=== PATIENT | male | born 1990 | race African-American/Black ===

== ENCOUNTER → 2020-12-06 08:52 | Outpatient (REF) | payer MEDICAID, SELFPAY ==
--- NOTE | ~2020-12-06 | NM_ITS ---
EXAMINATION: RADIONUCLIDE SOLID FOOD GASTRIC EMPTYING 4-HOUR STUDY CLINICAL INFORMATION: Epigastric pain, GERD, abdominal bloating. COMPARISON: None. TECHNIQUE: A standard meal consisting of 4 oz of Egg Beaters brand tagged with 760 microcuries Tc-99m Sulfur Colloid, 8 oz water and 2 slices of toast with jelly was administered orally to the patient. Images were obtained using a dual head gamma camera in the anterior and posterior projections over of the stomach immediately post ingestion and at hourly intervals up to 3 hours post ingestion. Images were not obtained at 4 hours due to the minimal retention at 3 hours. The anterior and posterior counts at each time interval were averaged using the geometric mean and expressed as percentage of the immediate post ingestion counts. FINDINGS: There is good visualization of activity in the stomach immediately post ingestion. As the study progresses, there is good clearance of activity from the stomach and visualization of progressively increasing small bowel activity. By the end of the study, there is almost no retention noted in the stomach. Retention in the stomach at each time interval was: 1 hour 36% (normal 37%-90%) 2 hours 4% (normal 30%-60%) 3 hours 5% 4 hours (Not Obtained) (normal 0%-10%) NM/NM gastric emptying study IMPRESSION: Normal solid food gastric emptying study.
== END ==
LOC: HO.NUCMED 08:52
PROVIDERS: PCP Internal Medicine; Visit Provider Internal Medicine
DX: R10.13 Epigastric pain (principal); R14.0 Abdominal distension (gaseous); K21.9 Gastro-esophageal reflux disease without esophagitis
CPT/HCPCS: 78264; A9541

== ENCOUNTER 2020-12-09 08:35 | Outpatient (REF) | payer MEDICAID, SELFPAY ==
--- NOTE | ~2020-12-09 | US_ITS ---
EXAMINATION: US ABDOMEN COMPLETE CLINICAL INFORMATION: Epigastric pain. COMPARISON: None TECHNIQUE: Real-time imaging of the abdominal viscera. FINDINGS: PANCREAS: Normal. ABDOMINAL AORTA: The proximal, mid, and distal segments are normal in caliber. INFERIOR VENA CAVA: Visualized portions are normal. LIVER: Normal. The liver is normal in size. The liver contour is normal. Parenchymal echogenicity is normal. No focal hepatic lesion. There is no intrahepatic biliary duct dilatation seen. GALLBLADDER: Normal. The gallbladder is physiologically distended without evidence of stones, sludge, polyps, wall thickening or pericholecystic fluid. COMMON BILE DUCT: Normal in caliber measuring 0.3 cm in diameter. RIGHT KIDNEY: There is a small 3 mm echogenic density in the lower pole with twinkle artifact questionable for a stone. No hydronephrosis or mass. The kidney measures 9.9 cm in maximum dimension. LEFT KIDNEY: There is a slightly hyperechoic 2 cm area in the mid left kidney questionable for a dromedary hump versus mass. No hydronephrosis. No renal calculi. The kidney measures 10.2 cm in maximum dimension. SPLEEN: Normal. The spleen measures 9.4 cm in maximum dimension. FREE FLUID: None. US/US abdomen complete IMPRESSION: Question small right renal stone. 2 cm slightly echogenic area in the mid left kidney questionable for a dromedary versus mass. Follow-up CT or MR kidneys with and without contrast recommended.
== END 2020-12-09 08:36 | disposition home or self-care (01) ==
LOC: HO.US 08:35
PROVIDERS: Visit Provider Internal Medicine
DX: R10.13 Epigastric pain (principal)
CPT/HCPCS: 76700

== ENCOUNTER 2021-01-27 13:42 | Emergency (ER) | payer MEDICAID, SELFPAY ==
--- NOTE | ~2021-01-27 | CT_ITS ---
EXAMINATION: CT ABDOMEN AND PELVIS WITHOUT CONTRAST CLINICAL INFORMATION: Abdominal pain. Rule out colitis. COMPARISON: Previous abdominal ultrasound November 2020 TECHNIQUE: Multidetector volumetric imaging was performed from the superior aspect of the liver through the pubic symphysis. Sagittal and coronal reformatted images were obtained on the technologist's workstation. This CT examination was performed using dose optimization techniques as appropriate, variously including the following: *Automated exposure control *Adjustment of mA and/or kV according to patient size (this includes techniques or standardized protocols for targeted exams where dose is matched to indication/reason for exam; i.e. extremities or head) *Use of iterative reconstruction technique DLP: 722 mGy-cm FINDINGS: LUNG BASES: The visualized lung bases are unremarkable. LIVER, GALLBLADDER, AND BILIARY TREE: The liver is normal in size, shape, and attenuation. No focal hepatic lesion or biliary ductal dilatation is present. The gallbladder is unremarkable with no evidence of radiopaque gallstones, gallbladder wall thickening, or obvious pericholecystic inflammatory changes. PANCREAS: Unremarkable. SPLEEN: Unremarkable. ADRENAL GLANDS: Unremarkable. KIDNEYS AND URETERS: The kidneys are normal in size, shape, and attenuation. No hydronephrosis, hydroureter, or calculi seen. No perinephric stranding. BLADDER: Unremarkable. GASTROINTESTINAL TRACT: There is question of mild wall thickening of the left colon. There is also question of mild wall thickening of the rectum. Small and large bowel is otherwise unremarkable. ABDOMINAL WALL: No significant hernia is appreciated. LYMPH NODES: There are small perirectal lymph nodes. There are small bilateral inguinal lymph nodes. VASCULAR: Unremarkable. PELVIC VISCERA: Unremarkable. OSSEOUS STRUCTURES: Unremarkable. CT/CT abdomen pelvis wo con IMPRESSION: Question mild colitis of the left colon and proctitis.
[2021-01-27 14:08] VITALS: BP 119/64; PULSE 69; RESP 16; TEMP 36.7; O2SAT 97; BMI 27.8
--- NOTE | 2021-01-27 15:02 | ED_ITS ---
HPI - General Adult General Chief complaint: General Medical Stated complaint: bloody bowl movements/lightheaded/nausea/bloating Time Seen by Provider: 01/27/21 15:00 Source: patient and family ( Significant other) Mode of arrival: ambulatory Limitations: no limitations History of Present Illness HPI narrative: 30-year-old male came in for abdominal cramps, bloody bowel movements, nausea for 3 days after eating bad food, girlfriend 9 from the same food and had similar symptoms but she feels better now. Patient describes the abdominal pain as intermittent, mild 2/10, localized to the mid abdomen with no radiation, worsening with food, nothing make it better, associated with bright red blood per rectum, patient declined diarrhea, solid formed stool. Related Data Allergies Allergy/AdvReac Type Severity Reaction Status Date / Time Iodinated Contrast Media Allergy Unknown Verified 01/27/21 14:08 [Contrast Dye] Penicillins Allergy Hives Verified 01/27/21 14:08 Review of Systems Review of Systems: All other systems are reviewed and are negative Constitutional: Reports as per HPI and Reports no additional constitutional complaints Eyes: Reports as per HPI and Reports no additional eye complaints Reports system reviewed and no additional complaints, except as documented Cardiovascular: Reports as per HPI and Reports no additional cardiovascular complaints Respiratory: Reports as per HPI and Reports no additional respiratory complaints Gastrointestinal: Reports as per HPI and Reports no additional gastrointestinal complaints Genitourinary: Reports no additional female genitourinary complaints Musculoskeletal: Reports no additional musculoskeletal complaints Skin/Breast: Reports system reviewed and no additional complaints, except as docu Psychiatric: Reports no additional psychiatric complaints Endocrine: Reports no additional endocrine complaints Hematologic/Lymphatic: Reports no additional hematologic/lymphatic complaints Allergic/Immunologic: Reports no additional allergic/immunologic complaints Reports system reviewed and no additional complaints, except as documented and Reports Abnormal speech present [facility] Past Medical History Medical History Dysautonomia Aristeo Monteiro infection Lyme disease Social History Social History Alcohol intake: never Patient Tobacco Use Status: Never used Tobacco Use of substances other than those prescribed or required for medical reasons: No Advance Directives: No Advance Directives Information Provided: No Physical Exam Vital Signs: Vital Signs: Last Vital Signs Temp 98.1 F 01/27/21 14:08 Pulse 56 01/27/21 15:14 Resp 17 01/27/21 15:14 BP 96/55 L 01/27/21 15:14 Pulse Ox 98 01/27/21 15:14 Body Mass Index 27.8 vital signs have been reviewed as appeared to be correct. Blood pressure no rmal. Heart rate normal. Respiration rate normal. Temperature normal. Oxygen saturation normal. Appearance: Alert. Oriented X3. No acute distress. Head: Normal external exam. Normocephalic. Atraumatic. No Robins signs noted. No raccoon eyes noted Eyes: PERRLA. EOMI. Conjunctiva and sclera normal. Eyelids normal. ENT: TM's Normal. Pharynx normal. Uvula midline. Moist mucous membranes. No trismus noted. No drooling noted. No muffled voice noted. Neck: Normal inspection. Neck supple. FROM. No adenopathy. Thyroid Normal. No meningeal signs. No neck mass noted. CVS: Normal heart rate and rhythm. Heart sound normal. No murmurs noted. Pulses normal throughout. Respiratory: No respiratory distress. Painless inspiration. Breath sounds normal. No wheezes/rales/rhonchi noted. Chest nontender. No accessory muscle usage noted or decreased air movement noted. Abdomen: Soft and nontender. Bowel sounds normal in all 4 quadrants. No distention noted. No organomegaly noted. No visible injury noted. Rectal exam: Brown stool with bright red blood streaks Back: No CVA tenderness. Full range of motion noted. Skin: Skin warm and dry. Normal skin color. Normal skin turgor. No rashes/lesions/lacerations noted. Extremities: No lower extremity edema. Extremities exhibit normal range of motion. Extremities nontender. Neuro: Oriented X 3. No motor deficit. No sensory deficit. Reflexes normal. Course Course Course Narrative: assessment and plan. 30-year-old male came in with abdominal cramps, rectal bleed after eating bad food, girlfriend ate the same food and also having similar symptoms, patient has unremarkable exam except for streaks of bright red blood in rectum, stable vital signs, stable hemoglobin. Patient was reassured, instructed to start with clear foods in advance gradually as tolerated. Medical Decision Making Lab Data Lab results reviewed: Yes I reviewed the patient's lab results. Result diagrams: 01/27/21 15:08 01/27/21 15:08 Labs: Lab Results 01/27/21 01/27/21 01/27/21 Range/Units 15:08 15:08 15:10 WBC 3.5 L (4.8-10.8) X10*3/uL RBC 4.76 (4.60-5.80) X10*6/uL Hgb 13.1 L (14.0-18.0) g/dl Hct 39.3 L (42-52) % MCV 82.6 (80-98) fL MCH 27.5 (27.0-33.0) pg MCHC 33.3 (31.0-36.0) g/dl RDW 12.7 (11.0-16.0) % Plt Count 215 (160-400) X10*3/uL MPV 11.1 (9.4-12.4) fL Immature Gran % (Auto) 0.0 (0.0-0.4) % Neut % (Auto) 54.7 (45-73) % Lymph % (Auto) 34.1 (20-40) % Billings % (Auto) 8.3 (2-11) % Eos % (Auto) 2.3 (0-4) % Baso % (Auto) 0.6 (0-2) % Lymph # (Auto) 1.2 (1.2-4.9) X10*3/uL Billings # (Auto) 0.3 (0.1-1.2) X10*3/uL Eos # (Auto) 0.1 (0.0-0.4) X10*3/uL Baso # (Auto) 0.0 (0.0-0.2) X10*3/uL Abs Immat Gran (auto) 0.00 (0.00-0.03) X10*3/uL Absolute Neuts (auto) 1.9 L (2.0-8.3) X10*3/uL Absolute Nucleated RBC 0.000 (0.0-0.012) X10*3/uL Nucleated RBC % (auto) 0.0 (0.0-0.2) /100WBC Sodium 139 (135-145) mmol/L Potassium 4.4 (3.3-5.1) mmol/L Chloride 107 (96-108) mmol/L Carbon Dioxide 23 (22-29) mmol/L Anion Gap 13 (12-20) BUN 11 (9-16) mg/dL Creatinine 0.94 (0.5-1.4) mg/dL Estim Creat Clear Calc 133.6 Estimated GFR > 60 Random Glucose 80 (60-115) mg/dL Calcium 9.4 (8.4-10.2) mg/dL Total Bilirubin 0.3 (0.0-1.0) mg/dL Direct Bilirubin < 0.2 (0.0-0.5) mg/dL AST 17 (5-37) U/L ALT 18 (0-40) U/L Alkaline Phosphatase 70 (39-117) U/L Total Protein 7.3 (6.5-8.0) g/dL Albumin 4.1 (3.5-5.0) g/dL Lipase 49 (8-78) U/L Stool Occult Blood POSITIVE (NEGATIVE) Imaging Data CT scan - abdomen: Radiologist's impression: Question mild colitis of the left colon and proctitis. Discharge Plan Discharge Clinical Impression: Colitis Patient Disposition: Home, Self-Care Instructions: Colitis (ED) Additional Instructions: return to the ED if the rectal bleed or the abdominal pain is not resolved in 2 days. Keep clear diet and advanced as tolerated. Referrals: Jen Carter MD [Primary Care Provider] - 2 days
[2021-01-27 15:14] VITALS: BP 96/55; PULSE 56; RESP 17; O2SAT 98
[2021-01-27 15:24] LABS: MANUAL DIFF FLAG NO
[2021-01-27 15:27] LABS: OBS Int Ctl Valid YES; OBS1 POSITIVE (NEGATIVE)
[2021-01-27 15:31] LABS: Basophils Percent Auto 0.6 % (0-2); Eosinophils Absolute Auto 0.1 X10*3/uL (0.0-0.4); Eosinophils Percent Auto 2.3 % (0-4); Hematocrit 39.3 % (42-52); Hemoglobin 13.1 g/dl (14.0-18.0); Lymphocytes Absolute Auto 1.2 X10*3/uL (1.2-4.9); Lymphocytes Percent Auto 34.1 % (20-40); Mean Corpuscular HGB Conc 33.3 g/dl (31.0-36.0); Mean Corpuscular Hemoglobin 27.5 pg (27.0-33.0); Mean Corpuscular Volume 82.6 fL (80-98); Mean Platelet Volume 11.1 fL (9.4-12.4); Monocytes Absolute Auto 0.3 X10*3/uL (0.1-1.2); Monocytes Percent Auto 8.3 % (2-11); Neutrophils Absolute Auto 1.9 X10*3/uL (2.0-8.3); Neutrophils Percent Auto 54.7 % (45-73); Platelet Count 215 X10*3/uL (160-400); Red Blood Count 4.76 X10*6/uL (4.60-5.80); Red Cell Distribution Width 12.7 % (11.0-16.0); White Blood Count 3.5 X10*3/uL (4.8-10.8)
[2021-01-27 15:58] LABS: Alanine Aminotransferase 18 U/L (0-40); Albumin Level 4.1 g/dL (3.5-5.0); Alkaline Phosphatase 70 U/L (39-117); Anion Gap 13 (12-20); Aspartate Amino Transferase 17 U/L (5-37); Bilirubin Direct < 0.2 mg/dL (0.0-0.5); Bilirubin Total 0.3 mg/dL (0.0-1.0); Blood Urea Nitrogen 11 mg/dL (9-16); Calcium 9.4 mg/dL (8.4-10.2); Carbon Dioxide 23 mmol/L (22-29); Chloride 107 mmol/L (96-108); Creatinine Clr Calc Pharmacy 133.6; Estimated Glomerular Filt Rate > 60; Glucose Random 80 mg/dL (60-115); Lipase 49 U/L (8-78); Potassium 4.4 mmol/L (3.3-5.1); Sodium 139 mmol/L (135-145); Total Protein 7.3 g/dL (6.5-8.0)
[2021-01-27 16:49] VITALS: BP 111/65; PULSE 62; RESP 17; O2SAT 100
== END 2021-01-27 16:54 | disposition home or self-care (01) ==
PROVIDERS: Emergency Provider Emergency Medicine; PCP Internal Medicine
DX: K52.9 Noninfective gastroenteritis and colitis, unspecified (principal)
CPT/HCPCS: 36415; 74176; 80048; 80076; 82272; 83690; 85025; 96360; 99284

== ENCOUNTER 2021-03-09 12:01 | Outpatient (REF) | payer MEDICAID, SELFPAY ==
[2021-03-09 15:11] LABS: Leukocytes Stool Qualitative NEGATIVE (NEGATIVE)
[2021-03-09 15:32] LABS: CDiff Gene PCR POSITIVE (Negative)
[2021-03-09 16:08] LABS: CDIFF Internal ctrl Dots and bkg OK (V); CDiff Toxin Negative (Negative)
== END 2021-03-09 12:02 | disposition home or self-care (01) ==
LOC: HO.10HDLNP 12:01
PROVIDERS: Visit Provider Internal Medicine
DX: R19.7 Diarrhea, unspecified (principal); R14.0 Abdominal distension (gaseous); K58.9 Irritable bowel syndrome, unspecified
CPT/HCPCS: 87045; 87046; 87177; 87209; 87324; 87329; 87493; 89055

== ENCOUNTER 2021-05-23 11:44 | Outpatient (REF) | payer MEDICAID, SELFPAY ==
[2021-05-23 12:45] LABS: CDiff Gene PCR POSITIVE (Negative)
[2021-05-23 13:23] LABS: CDIFF Internal ctrl Dots and bkg OK (V); CDiff Toxin Negative (Negative)
[2021-05-23 13:45] LABS: Leukocytes Stool Qualitative NEGATIVE (NEGATIVE)
== END 2021-05-23 11:45 | disposition home or self-care (01) ==
LOC: HO.LNP 11:44
PROVIDERS: Visit Provider Internal Medicine
DX: R19.7 Diarrhea, unspecified (principal)
CPT/HCPCS: 87045; 87046; 87177; 87209; 87324; 87329; 87493; 89055

== ENCOUNTER 2021-07-01 12:48 | Outpatient (REF) | payer MEDICAID, SELFPAY ==
[2021-07-01 13:10] LABS: MANUAL DIFF FLAG NO
[2021-07-01 14:01] LABS: Basophils Percent Auto 0.3 % (0-2); Eosinophils Absolute Auto 0.1 X10*3/uL (0.0-0.4); Eosinophils Percent Auto 1.6 % (0-4); Hematocrit 36.9 % (42.0-52.0); Hemoglobin 12.2 g/dl (14.0-18.0); Imm Gran Abs Auto 0.01 X10*3/uL (0.00-0.03); Imm Gran Pct Auto 0.3 % (0.0-0.4); Lymphocytes Percent Auto 33.1 % (20-40); Mean Corpuscular HGB Conc 33.1 g/dl (31.0-36.0); Mean Corpuscular Hemoglobin 26.5 pg (27.0-33.0); Mean Corpuscular Volume 80.2 fL (80.0-98.0); Mean Platelet Volume 12.1 fL (9.4-12.4); Monocytes Absolute Auto 0.4 X10*3/uL (0.1-1.2); Monocytes Percent Auto 11.5 % (2-11); Neutrophils Absolute Auto 1.6 x10*3/uL (2.0-8.3); Neutrophils Percent Auto 53.2 % (45-73); Platelet Count 258 X10*3/uL (160-400); Red Cell Distribution Width 15.3 % (11.0-16.0); White Blood Count 3.1 X10*3/uL (4.8-10.8)
[2021-07-01 14:20] LABS: Alanine Aminotransferase 30 U/L (0-40); Albumin Level 3.8 g/dL (3.5-5.0); Alkaline Phosphatase 61 U/L (39-117); Anion Gap 8 (12-20); Aspartate Amino Transferase 27 U/L (5-37); Bilirubin Direct 0.2 mg/dL (0.0-0.5); Bilirubin Total 0.4 mg/dL (0.0-1.0); Blood Urea Nitrogen 14 mg/dL (9-16); C Reactive Protein 0.31 mg/dL (< or = 0.50); Calcium 9.6 mg/dL (8.4-10.2); Carbon Dioxide 28 mmol/L (22-29); Chloride 105 mmol/L (96-108); Estimated Glomerular Filt Rate > 60; Glucose Random 96 mg/dL (60-115); Lipase 40 U/L (8-78); Potassium 4.3 mmol/L (3.3-5.1); Sodium 137 mmol/L (135-145); Total Protein 8.5 g/dL (6.5-8.0)
[2021-07-01 14:45] LABS: Amylase 82 U/L (28-100)
[2021-07-01 15:00] LABS: Erythrocyte Sedimentation Rate 29 MM/HR (0-15)
== END 2021-07-01 12:49 | disposition home or self-care (01) ==
LOC: HO.LAB 12:48
PROVIDERS: Visit Provider Internal Medicine
DX: R10.84 Generalized abdominal pain (principal); R19.7 Diarrhea, unspecified; K62.5 Hemorrhage of anus and rectum; R11.0 Nausea
CPT/HCPCS: 36415; 80048; 80076; 82150; 83690; 85025; 85652; 86140

== ENCOUNTER 2021-07-04 10:56 | Outpatient (REF) | payer MEDICAID, SELFPAY ==
[2021-07-04 11:55] LABS: Leukocytes Stool Qualitative NEGATIVE (NEGATIVE)
[2021-07-04 12:39] LABS: CDiff Gene PCR POSITIVE (Negative)
[2021-07-04 14:35] LABS: CDIFF Internal ctrl Dots and bkg OK (V); CDiff Toxin Negative (Negative)
== END 2021-07-04 10:57 | disposition home or self-care (01) ==
LOC: HO.LNP 10:56
PROVIDERS: Visit Provider Internal Medicine
DX: R19.7 Diarrhea, unspecified (principal); K62.5 Hemorrhage of anus and rectum; R10.84 Generalized abdominal pain; R11.0 Nausea
CPT/HCPCS: 87045; 87046; 87177; 87186; 87209; 87324; 87329; 87493; 89055

== ENCOUNTER 2021-09-09 12:21 | Outpatient (REF) | payer MEDICAID, SELFPAY ==
[2021-09-09 14:06] LABS: Leukocytes Stool Qualitative NEGATIVE (NEGATIVE)
[2021-09-09 14:07] LABS: CDiff Gene PCR NEGATIVE (Negative)
== END 2021-09-09 12:22 | disposition home or self-care (01) ==
LOC: HO.LNP 12:21
PROVIDERS: Visit Provider Internal Medicine
DX: R10.84 Generalized abdominal pain (principal); A04.72 Enterocolitis due to Clostridium difficile, not specified as recurrent; R19.7 Diarrhea, unspecified
CPT/HCPCS: 87045; 87046; 87177; 87209; 87329; 87493; 89055

== ENCOUNTER → 2021-12-15 15:06 | Outpatient (BNVA) | payer MEDICAID, SELFPAY | PROVIDERS: PCP Internal Medicine; Referring Provider Internal Medicine; Visit Provider Surgery | DX: K64.8 Other hemorrhoids (principal); K64.4 Residual hemorrhoidal skin tags | CPT/HCPCS: 46600; 99202 ==

== ENCOUNTER → 2022-02-01 13:29 | Outpatient (BNVA) | payer MEDICAID, SELFPAY | PROVIDERS: PCP Internal Medicine; Visit Provider Surgery | DX: K64.9 Unspecified hemorrhoids (principal) | CPT/HCPCS: 46600; 99212 ==

== ENCOUNTER → 2022-03-02 14:38 | Outpatient (BNVA) | payer MEDICAID, SELFPAY | PROVIDERS: PCP Internal Medicine; Visit Provider Surgery | DX: K64.9 Unspecified hemorrhoids (principal) | CPT/HCPCS: 46600; 99212 ==

== ENCOUNTER 2022-04-19 09:20 | Day surgery (SDC) | payer MEDICAID, SELFPAY ==
[2022-04-14 10:09] VITALS: BMI 33.0
--- NOTE | 2022-04-18 12:52 | P.CONAN_ITS ---
Documented by User: Ginger Galeano NP 04/18/22 12:52 HPI - Anesthesia Eval Consult details Narrative: 32yo M for Colonoscopy ON LICENSE OF [facility] Active Problems Active Problems: All Active Problems (Updated 12/15/21 @ 15:27 by Marko Brumfield MD) Bleeding hemorrhoids (Acute) Past Medical History Medical History Bleeding hemorrhoids Dysautonomia Aristeo Monteiro infection Melo thyroiditis, fibrous variant Lyme disease Social History Social History Alcohol intake: never Patient Tobacco Use Status: Former Tobacco user Quit Date: age 24 Use of substances other than those prescribed or required for medical reasons: Yes Are you DNR?: No Advance Directives: No Advance Directives Information Provided: Yes Meds Allergies Allergy/AdvReac Type Severity Reaction Status Date / Time metronidazole Allergy Unknown Unknown Verified 04/19/22 09:59 doxycycline Allergy Unknown Verified 04/19/22 10:00 Iodinated Contrast Media Allergy Unknown Verified 03/02/22 15:02 [Contrast Dye] Penicillins Allergy Hives Verified 03/02/22 15:02 vancomycin Allergy Unknown Verified 04/19/22 09:58 Home Medications Medication Instructions Recorded Confirmed Last Taken Type clonazepam 1 mg tablet 1 mg PO BID 12/15/21 02/01/22 04/19/22 History immune glob,gamma(IgG) 10 IV 12/15/21 02/01/22 Unknown History [id number] 0 to 50 mcg/mL IV solution (Gammagard S-D (IgA < 1 mcg/mL)) Exam Exam Date and Time: April 18, 2022 1252 Height,Weight and Vital Signs: Height 5 ft 11 in Weight 107.501 kg Assessment and Plan Assessment Anesthesia Assessment: Chart Reviewed Documented by User: Rocio Felix MD 04/19/22 11:28 ON LICENSE OF [facility] Past Medical History Medical History Bleeding hemorrhoids Dysautonomia Aristeo Monteiro infection Melo thyroiditis, fibrous variant Lyme disease Surgical History History of Problems with Anesthesia: No Social History Social History Alcohol intake: never Patient Tobacco Use Status: Former Tobacco user Quit Date: age 24 Use of substances other than those prescribed or required for medical reasons: Yes Are you DNR?: No Advance Directives: No Advance Directives Information Provided: Yes Meds Allergies Allergy/AdvReac Type Severity Reaction Status Date / Time metronidazole Allergy Unknown Unknown Verified 04/19/22 09:59 doxycycline Allergy Unknown Verified 04/19/22 10:00 Iodinated Contrast Media Allergy Unknown Verified 03/02/22 15:02 [Contrast Dye] Penicillins Allergy Hives Verified 03/02/22 15:02 vancomycin Allergy Unknown Verified 04/19/22 09:58 Home Medications Medication Instructions Recorded Confirmed Last Taken Type clonazepam 1 mg tablet 1 mg PO BID 12/15/21 02/01/22 04/19/22 History immune glob,gamma(IgG) 10 IV 12/15/21 02/01/22 Unknown History [id number] 0 to 50 mcg/mL IV solution (Gammagard S-D (IgA < 1 mcg/mL)) Exam Airway Mallampati Class: II TM Dist: >3cm Neck ROM: Full Loose/Missing/Broken Teeth: No Heart: RRR Lungs: CTA Assessment and Plan Assessment Anesthesia Assessment: Anesthesia Plan Discussed Final Anesthetic Review History of Problems with Anesthesia: No NPO: Yes ASA Class: II Final Preanesthetic Review: Meds/Allgs Chart Reviewed, Consent Obtained/Reviewed and Anes Risks/Benef Reviewed Patient Risk: Low Procedure Risk: Low Anesthetic Plan Anesthetic Plan: MAC: Disposition: Standard PACU
[2022-04-19 09:46] VITALS: BMI 33.5
[2022-04-19 09:50] VITALS: BP 114/72; PULSE 56; RESP 18; TEMP 36.5; O2SAT 96; BMI 33.5
[2022-04-19] MEDS: Lactated Ringers 1,000 ML 100 ML IVCONT (10:20)
[2022-04-19 11:04] VITALS: BP 136/48; PULSE 64; RESP 16; TEMP 36.1; O2SAT 96
[2022-04-19 11:40] VITALS: BP 90/46; PULSE 70; RESP 20; TEMP 36.3; O2SAT 96
--- NOTE | 2022-04-19 11:45 | P.BOP_ITS ---
Brief Operative Note Date of Service: 04/19/22 Pre-op diagnosis: Diarrhea, rectal bleeding Post-op diagnosis: other (Colitis) Procedure: Colonoscopy to the cecum and TI with biopsies Surgeon: Enoc Babin Anesthesia: MAC Was an Planning Assistant used for this Procedure?: No Estimated blood loss (mL): 2.0 Pathology: other (A. Terminal ileum B. Ascending colon C. Colon 50-60cm D. Colon 20-40cm E. Rectum) Condition: stable Disposition: PACU
[2022-04-19 12:08] VITALS: BP 116/62; PULSE 57; RESP 20; TEMP 36.3; O2SAT 100
--- NOTE | 2022-04-19 13:24 | OP_ITS ---
SURGEON: Enoc Babin MD INDICATIONS: The patient presents for evaluation of intermittent diarrhea and rectal bleeding. Full consent has been obtained from him for this, including risks of bleeding and perforation. PREOPERATIVE DIAGNOSIS: Diarrhea and rectal bleeding. POSTOPERATIVE DIAGNOSIS: Diarrhea and rectal bleeding, mild and patchy colitis involving the descending and sigmoid colon, and distal rectum. PROCEDURE PERFORMED: Colonoscopy to the cecum and terminal ileum with multiple biopsies. ESTIMATED BLOOD LOSS: COMPLICATIONS: ANESTHESIA: Monitored anesthesia care. ASSISTANTS: SPECIMENS: DESCRIPTION OF PROCEDURE: The patient was placed in the left lateral decubitus position. The digital rectal exam revealed no abnormalities. There was no sign of any perianal disease. The Olympus video pediatric colonoscope was entered into the rectum and advanced easily to the cecum. Once in the cecum I did identify normal-appearing cecal pouch with appendiceal orifice and a normal-appearing ileocecal valve. The terminal ileum was cannulated for least 5 to 10 cm and appeared grossly normal. Biopsies were obtained. The scope was withdrawn back in the colon. The cecum and ileocecal valve appeared normal. The scope was then slowly withdrawn assessing all mucosal surfaces carefully. Preparation was excellent. The ascending colon and transverse colon appeared to be normal. Biopsies were obtained in the ascending colon. Extending from the descending colon to the rectum were some areas of edema and mild, patchy areas of colitis with some friability, edema, and minimal erosions. Biopsies were obtained between 50 and 60 cm and between 20 and 40 cm. The proximal rectum appeared normal. In the retroflexed position there was evidence of some mild proctitis as well. Biopsies were obtained both in the proximal and distal rectum. I did not visualize any sign of polyps nor angiodysplasia. In the distal rectum, some minimal internal hemorrhoids were noted as well. The scope was straightened and withdrawn from the patient. He tolerated the procedure well and was returned to the recovery area in stable condition. IMPRESSION: Changes consistent with a mild colitis involving the rectum and left colon. Biopsies taken. PLAN: The results of the biopsies will be checked. He has been advised to avoid all aspirin and NSAIDs long-term. I shall start him on mesalamine 800mg tid and observe him. He will continue Imodium and dicyclomine as well. He will be seen in followup in the office. MD JONEL Rodrigues/DARBY / [id number] MTDD
== END 2022-04-19 12:33 | disposition home or self-care (01) ==
PROVIDERS: PCP Internal Medicine; Visit Provider Internal Medicine
PROC: 0DJD8ZZ Inspection of Lower Intestinal Tract, Via Natural or Artificial Opening Endoscopic (ICD-10-PCS; CPT 45378; principal; 2022-04-19 10:30)
DX: K62.5 Hemorrhage of anus and rectum (principal); K52.9 Noninfective gastroenteritis and colitis, unspecified; K62.89 Other specified diseases of anus and rectum; K64.8 Other hemorrhoids; G90.1 Familial dysautonomia [Riley-Day]; B27.00 Gammaherpesviral mononucleosis without complication; E06.3 Autoimmune thyroiditis; Z86.19 Personal history of other infectious and parasitic diseases; Z79.899 Other long term (current) drug therapy; Z87.891 Personal history of nicotine dependence
CPT/HCPCS: 45380; 88305

== ENCOUNTER 2022-04-21 18:16 | Emergency (ER) | payer MEDICAID, SELFPAY ==
--- NOTE | ~2022-04-21 | CT_ITS ---
EXAMINATION: CT ABDOMEN AND PELVIS WITHOUT CONTRAST CLINICAL INFORMATION: Abdominal pain status post colonoscopy COMPARISON: CT abdomen and pelvis January 2021 TECHNIQUE: Multidetector volumetric imaging was performed from the superior aspect of the liver through the pubic symphysis. Sagittal and coronal reformatted images were obtained on the technologist's workstation. This CT examination was performed using dose optimization techniques as appropriate, variously including the following: *Automated exposure control *Adjustment of mA and/or kV according to patient size (this includes techniques or standardized protocols for targeted exams where dose is matched to indication/reason for exam; i.e. extremities or head) *Use of iterative reconstruction technique DLP: A 53 mGy-cm FINDINGS: LUNG BASES: There is minimal posterior dependent atelectasis in the lower lobes.. LIVER, GALLBLADDER, AND BILIARY TREE: The liver is normal in size, shape, and attenuation. No focal hepatic lesion or biliary ductal dilatation is present. The gallbladder is unremarkable with no evidence of radiopaque gallstones, gallbladder wall thickening, or obvious pericholecystic inflammatory changes. PANCREAS: Unremarkable. SPLEEN: Unremarkable. ADRENAL GLANDS: Unremarkable. KIDNEYS AND URETERS: The kidneys are normal in size, shape, and attenuation. No hydronephrosis, hydroureter, or calculi seen. No perinephric stranding. BLADDER: Unremarkable. GASTROINTESTINAL TRACT: The small and large bowel are unremarkable. The appendix is unremarkable. ABDOMINAL WALL: No significant hernia is appreciated. LYMPH NODES: Normal. VASCULAR: Unremarkable. PELVIC VISCERA: Unremarkable. OSSEOUS STRUCTURES: Unremarkable. Peroneal cavity: No free air or free fluid CT/CT abdomen pelvis wo IV con IMPRESSION: No significant abnormality. Fleischner guidelines were followed.
[2022-04-21 18:19] VITALS: BP 117/69; PULSE 82; RESP 18; TEMP 37.2; O2SAT 100; BMI 33.5
--- NOTE | 2022-04-21 18:21 | ECG_ITS ---
Test Reason : CHEST PAIN Blood Pressure : / mmHG Vent. Rate : 078 BPM Atrial Rate : 078 BPM P-R Int : 156 ms QRS Dur : 082 ms QT Int : 334 ms P-R-T Axes : 057 022 019 degrees QTc Int : 380 ms Normal sinus rhythm Normal ECG No previous ECGs available Referred By: Generic ED Physician Electronically Signed By:JULIO GOMES
[2022-04-21 18:34] LABS: MANUAL DIFF FLAG NO
[2022-04-21 18:37] LABS: Basophils Percent Auto 0.3 % (0-2); Eosinophils Absolute Auto 0.1 X10*3/uL (0.0-0.4); Eosinophils Percent Auto 1.2 % (0-4); Hematocrit 37.3 % (42.0-52.0); Hemoglobin 12.6 g/dl (14.0-18.0); Imm Gran Abs Auto 0.02 X10*3/uL (0.00-0.03); Imm Gran Pct Auto 0.3 % (0.0-0.4); Lymphocytes Absolute Auto 1.2 X10*3/uL (1.2-4.9); Lymphocytes Percent Auto 15.9 % (20-40); Mean Corpuscular HGB Conc 33.8 g/dl (31.0-36.0); Mean Corpuscular Hemoglobin 27.6 pg (27.0-33.0); Mean Corpuscular Volume 81.8 fL (80.0-98.0); Mean Platelet Volume 10.4 fL (9.4-12.4); Monocytes Absolute Auto 0.4 X10*3/uL (0.1-1.2); Monocytes Percent Auto 5.2 % (2-11); Neutrophils Absolute Auto 5.6 x10*3/uL (2.0-8.3); Neutrophils Percent Auto 77.1 % (45-73); Platelet Count 260 X10*3/uL (160-400); Red Blood Count 4.56 X10*6/uL (4.60-5.80); Red Cell Distribution Width 13.9 % (11.0-16.0); White Blood Count 7.3 X10*3/uL (4.8-10.8)
[2022-04-21 19:08] LABS: Troponin-I High Sensitivity < 3.5 ng/L (<3.5-35.0)
[2022-04-21 19:17] LABS: Alanine Aminotransferase 109 U/L (0-40); Alkaline Phosphatase 79 U/L (39-117); Anion Gap 13 (12-20); Aspartate Amino Transferase 127 U/L (5-37); Bilirubin Direct 0.3 mg/dL (0.0-0.5); Bilirubin Total 0.3 mg/dL (0.0-1.0); Blood Urea Nitrogen 12 mg/dL (9-16); Calcium 9.7 mg/dL (8.4-10.2); Carbon Dioxide 27 mmol/L (22-29); Chloride 105 mmol/L (96-108); Creatinine Clr Calc Pharmacy 127.9; Estimated Glomerular Filt Rate > 60; Glucose Random 88 mg/dL (60-115); Lipase 67 U/L (8-78); Potassium 4.3 mmol/L (3.3-5.1); Sodium 141 mmol/L (135-145); Total Protein 7.5 g/dL (6.5-8.0)
[2022-04-21 19:26] VITALS: BP 109/53; PULSE 71; RESP 16; TEMP 37.1; O2SAT 99
--- NOTE | 2022-04-21 19:26 | PC.NURSE ---
Pt. in room and on property assessment monitor at this time. Kasandra Salazar NP in room and at bedside.
--- NOTE | 2022-04-21 19:30 | ED_ITS ---
HPI - Chest Pain General Chief Complaint: Chest Pain Stated Complaint: postop colonoscopy 2days , abd pain chest pain Time Seen by Provider: 04/21/22 19:23 Source: patient Mode of arrival: ambulatory Limitations: no limitations History of Present Illness HPI narrative: 32-year-old male presents with substernal reproducible chest pain to and abdominal pain with GERD like symptoms. He states the pain has increased, had a colonoscopy approximately 2 days ago and has a history of ulcerative colitis. He is supposed to be on mesalamine, however was unable to obtain that prescription from the pharmacy. He is passing flatus, but states that his abdomen is distended and is very painful for him to ambulate. He does not report palpitations, diaphoresis, nausea, vomiting, dysuria, hematuria, weakness, fevers or chills. MD complaint: chest pain Onset (ago): day(s) (2) Timing of current episode: constant Prior episodes: Yes Onset: other (Started after colonoscopy 2 days ago) Pain location: substernal and epigastric Pain radiation: none Severity: severe Pain scale (0-10): 10 Quality: aching, burning and fullness Relieving factors: nothing Exacerbating factors: exertion, inspiration, eating, palpation and movement Context: other (Colonoscopy with biopsy) Treatment prior to arrival: none Related Data Home Medications Medication Instructions Recorded Confirmed clonazepam 1 mg tablet 1 mg PO BID 12/15/21 02/01/22 immune glob,gamma(IgG) 10 IV 12/15/21 02/01/22 [id number] 0 to 50 mcg/mL IV solution (Gammagard S-D (IgA < 1 mcg/mL)) Previous Rx's Medication Instructions Recorded loperamide 2 mg tablet 2 mg PO Q6H PRN loose stool #20 01/18/22 tabs hydrocortisone acetate 25 mg 25 mg AZ BID PRN hemorrhoids #24 ea 01/20/22 rectal suppository (Anucort-HC) ondansetron 4 mg disintegrating 4 mg PO Q8H PRN nausea and 04/21/22 tablet vomiting #7 tabs Allergies Allergy/AdvReac Type Severity Reaction Status Date / Time metronidazole Allergy Unknown Unknown Verified 04/19/22 09:59 doxycycline Allergy Unknown Verified 04/19/22 10:00 Iodinated Contrast Media Allergy Unknown Verified 03/02/22 15:02 [Contrast Dye] Penicillins Allergy Hives Verified 03/02/22 15:02 vancomycin Allergy Unknown Verified 04/19/22 09:58 Review of Systems Review of Systems: Constitutional: No Fever, No Chills ENT/Mouth: No Ear Pain, No Hoarseness, No sore throat Eyes: No Eye Pain, No Swelling, No Redness, No Foreign Body Cardiovascular: Positive Chest Pain, No SOB Respiratory: No Cough, No Dyspnea Gastrointestinal: No Nausea, No Vomiting, No Diarrhea, positive epigastric and diffuse abdominal Pain Genitourinary: No Dysuria, No Hematuria Musculoskeletal: No joint pain, No Myalgias, No Joint Swelling Skin: No Skin lacerations, No rash Neuro: No Weakness, No Numbness, No Paresthesias, No Loss of Consciousness, No Dizziness, No Headache Psych: No Anxiety/Panic, No Depression Heme/Lymph: no easy bruising, no Lymphadenopathy Endocrine: No Polyuria, No Polydipsia Yes all other systems are reviewed and are negative [facility] Past Medical History Attestation statement: The following information was validated with the patient. Source: old records reviewed Medical History Bleeding hemorrhoids Dysautonomia Aristeo Monteiro infection Melo thyroiditis, fibrous variant Lyme disease Social History Social History Alcohol intake: never Patient Tobacco Use Status: Former Tobacco user Quit Date: age 24 Use of substances other than those prescribed or required for medical reasons: Yes Substance Use Type: Marijuana Substance Use Frequency: Daily Advance Directives: No Advance Directives Information Provided: No Physical Exam Vital Signs: Vital Signs: Last Vital Signs Temp 98.6 F 04/21/22 22:26 Pulse 59 04/21/22 22:26 Resp 16 04/21/22 22:26 BP 129/65 04/21/22 22:26 Pulse Ox 96 04/21/22 22:26 O2 Del Method 04/21/22 22:26 BMI result Body Mass Index 33.5 Appearance: Alert. Oriented X3. Moderate distress. In position. Eyes: Pupils equal, round and reactive to light. ENT: Pharynx normal. Neck: Normal inspection. Neck supple. CVS: Normal heart rate and rhythm. Pulses normal. Respiratory: No respiratory distress. Breath sounds normal. Abdomen: Soft and diffusely tender and distended. Skin: Skin warm and dry. Normal skin color. Normal skin turgor. Extremities: No lower extremity edema. Moves all extremities against resistance. Neuro: No motor deficit. No sensory deficit. Cranial nerves 2-12 intact. Course Course Course Narrative: 32-year-old male presents for 10/10 epigastric, chest, and abdominal pain that started after a colonoscopy 2 days ago. He does have a history of ulcerative colitis, had a colonoscopy with Dr. Babin where they did take serial biopsies. Patient also reports that he is supposed to take mesalamine however he was unable to obtain the prescription secondary to insurance issues. At this time patient appears uncomfortable, but is afebrile, with stable vital signs. At this time will order pain management, fluids, and CT scan of abdomen and pelvis to rule out perforation. 21:33 CT scan abdomen and pelvis is negative for acute findings requiring gene gent intervention. Plan of care is to discharge home and have patient follow-up with Gastroenterology. Patient verbalized understanding of and agrees to plan of care discharge home. Verbalized understanding of signs symptoms indicating need for emergent intervention. MDM - Chest Pain Differential Diagnosis Differential diagnosis: Likely pneumothorax, atypical chest pain, costochondritis, chest pain and biliary colic Differential diagnosis: Perforation Medical Records Data Attestation: I reviewed the patient's medical records. Lab Data Attestation: I reviewed the patient's lab results. Result diagrams: 04/21/22 18:28 04/21/22 18:28 Labs: Lab Results 04/21/22 04/21/22 04/21/22 Range/Units 18:28 18:28 18:28 WBC 7.3 (4.8-10.8) X10*3/uL RBC 4.56 L (4.60-5.80) X10*6/uL Hgb 12.6 L (14.0-18.0) g/dl Hct 37.3 L (42.0-52.0) % MCV 81.8 (80.0-98.0) fL MCH 27.6 (27.0-33.0) pg MCHC 33.8 (31.0-36.0) g/dl RDW 13.9 (11.0-16.0) % Plt Count 260 (160-400) X10*3/uL MPV 10.4 (9.4-12.4) fL Immature Gran % (Auto) 0.3 (0.0-0.4) % Neut % (Auto) 77.1 H (45-73) % Lymph % (Auto) 15.9 L (20-40) % Overton % (Auto) 5.2 (2-11) % Eos % (Auto) 1.2 (0-4) % Baso % (Auto) 0.3 (0-2) % Lymph # (Auto) 1.2 (1.2-4.9) X10*3/uL Overton # (Auto) 0.4 (0.1-1.2) X10*3/uL Eos # (Auto) 0.1 (0.0-0.4) X10*3/uL Baso # (Auto) 0.0 (0.0-0.2) X10*3/uL Abs Immat Gran (auto) 0.02 (0.00-0.03) X10*3/uL Absolute Neuts (auto) 5.6 (2.0-8.3) x10*3/uL Absolute Nucleated RBC 0.000 (0.0-0.012) X10*3/uL Nucleated RBC % (auto) 0.0 (0.0-0.2) /100WBC Sodium 141 (135-145) mmol/L Potassium 4.3 (3.3-5.1) mmol/L Chloride 105 (96-108) mmol/L Carbon Dioxide 27 (22-29) mmol/L Anion Gap 13 (12-20) BUN 12 (9-16) mg/dL Creatinine 1.05 (0.5-1.4) mg/dL Estim Creat Clear Calc 127.9 Estimated GFR > 60 Random Glucose 88 (60-115) mg/dL Calcium 9.7 (8.4-10.2) mg/dL Total Bilirubin 0.3 (0.0-1.0) mg/dL Direct Bilirubin 0.3 (0.0-0.5) mg/dL AST 127 H (5-37) U/L ALT 109 H (0-40) U/L Alkaline Phosphatase 79 D (39-117) U/L Troponin I High Sens < 3.5 (<3.5-35.0) ng/L Total Protein 7.5 (6.5-8.0) g/dL Albumin 4.0 (3.5-5.0) g/dL Lipase 67 (8-78) U/L Imaging Data CT scan - abdomen: Attestation: I personally reviewed and interpreted this imaging study as follows: Radiologist's impression: EXAMINATION: CT ABDOMEN AND PELVIS WITHOUT CONTRAST? CLINICAL INFORMATION: Abdominal pain status post colonoscopy? COMPARISON: CT abdomen and pelvis January 2021 TECHNIQUE: Multidetector volumetric imaging was performed from the superior aspect of the liver through the pubic symphysis. Sagittal and coronal reformatted images were obtained on the technologist's workstation.? This CT examination was performed using dose optimization techniques as appropriate, variously including the following: *Automated exposure control *Adjustment of mA and/or kV according to patient size (this includes techniques or standardized protocols for targeted exams where dose is matched to indication/reason for exam; i.e. extremities or head) *Use of iterative reconstruction technique DLP: A 53 mGy-cm FINDINGS: LUNG BASES: There is minimal posterior dependent atelectasis in the lower lobes..? LIVER, GALLBLADDER, AND BILIARY TREE: The liver is normal in size, shape, and attenuation. No focal hepatic lesion or biliary ductal dilatation is present. The gallbladder is unremarkable with no evidence of radiopaque gallstones, gallbladder wall thickening, or obvious pericholecystic inflammatory changes.? PANCREAS: Unremarkable.? SPLEEN: Unremarkable.? ADRENAL GLANDS: Unremarkable.? KIDNEYS AND URETERS: The kidneys are normal in size, shape, and attenuation. No hydronephrosis, hydroureter, or calculi seen. No perinephric stranding. ? BLADDER: Unremarkable.? GASTROINTESTINAL TRACT: The small and large bowel are unremarkable. The appendix is unremarkable.? ABDOMINAL WALL: No significant hernia is appreciated.? LYMPH NODES: Normal. VASCULAR: Unremarkable. PELVIC VISCERA: Unremarkable.? OSSEOUS STRUCTURES: Unremarkable. Peroneal cavity: No free air or free fluid CT/CT abdomen pelvis wo IV con IMPRESSION: No significant abnormality.? ? Fleischner guidelines were followed. ECG Data ECG #1: Attestation: I personally reviewed and interpreted this ECG as follows: ECG interpretation date: 04/21/22 ECG interpretation time: 18:22 Prior ECG tracings: not available for review Interpretation: Vent. rate 78 BPM AZ interval 156 ms QRS duration 82 ms QT/QTc 334/380 ms P-R-T axes 57 22 19 Normal sinus rhythm Normal ECG No previous ECGs available Discharge Plan Discharge Clinical Impression: Atypical chest pain, GERD (gastroesophageal reflux disease), Abdominal pain Patient Disposition: Home, Self-Care Instructions: Gastroesophageal Reflux Disease (ED), Abdominal Pain (ED), Noncar diac Chest Pain (ED) Additional Instructions: You were evaluated for abdominal pain and chest pain after colonoscopy. CT scan of abdomen and pelvis is negative for acute findings. Please follow-up with Gastroenterology for your mesalamine medications. Continue to take [id number] medications help you with your GERD symptoms. Pay attention to the ingredients, monitor the amount of acetaminophen in each products so you do not overdose on Tylenol. Thank you for choosing this emergency department for evaluation. Please follow-up with primary care physician as needed. Return to the emergency department for any new, concerning, or worsening symptoms. Prescriptions: New ondansetron 4 mg tablet,disintegrating 4 mg PO Q8H PRN (Reason: nausea and vomiting) Qty: 7 0RF No Action loperamide 2 mg tablet 2 mg PO Q6H PRN (Reason: loose stool) Qty: 20 0RF hydrocortisone acetate [Anucort-HC] 25 mg suppository 25 mg AZ BID PRN (Reason: hemorrhoids) Qty: 24 2RF clonazepam 1 mg tablet 1 mg PO BID Gammagard S-D (IgA < 1 mcg/mL) 10 gram recon soln IV Referrals: Enoc Babin [Physician] - 2 days (Abdominal pain status post colonoscopy) Interventions: ED Discharge Assessment Last Done: 04/21/22 22:35 Discharge Date/Time: 04/21/22 22:36
--- NOTE | 2022-04-21 19:40 | PC.NURSE ---
Both feet elevated on pillows and medicated for pain and nausea. Awaiting CT scan at this time.
[2022-04-21] MEDS: Pantoprazole Sodium 40 MG/10 ML VIAL IVPUSH (19:41)
[2022-04-21] MEDS: ondansetron HCL 4 MG/2 ML VIAL IVPUSH (19:41)
[2022-04-21] MEDS: Morphine Sulfate 4 MG/ML CARTRIDGE IVPUSH (19:41)
--- OUTSIDE RECORDS SUMMARY | 2022-04-21 19:43 | XMS_ITS | Continuity of Care Document ---
:1990 Author Organization [facility] Address [address] [place] [address]- Care Team Providers Name Role Phone Jen Carter MD Primary Care Physician Encounter [facility] [id number] Date(s): 04/22/21 - 01/26/22 [facility] [address] [place] [address]- Discharge Disposition: A-D/C Home Attending Physician: Arnaldo WHITTAKER(Hem/Onc), Franklyn Rowley Admitting Physician: Arnaldo WHITTAKER(Hem/Onc), Franklyn Rowley Referring Physician: Jen Carter MD Allergies, Adverse Reactions, Alerts Substance Reaction Severity Status penicillins Active Medications Amoxicillin By Mouth, Maintenance, 05/02/18 16:14:13 EDT Start Date: 05/02/18 Status: OrderedAtivan 2 mg oral tablet See Instructions, PRN as needed for anxiety, 1 tablet By Mouth 3 times a day, 0 Refills, Maintenance, 02/24/14 14:18:49 Start Date: 02/24/14 Status: OrderedMisc Rx Refills 0, Maintenance, 05/02/18 16:14:41 EDT, Compound Start Date: 05/02/18 Status: OrderedPenicillin Tablet By Mouth, Every 6 hours, Maintenance, 05/02/18 16:14:28 EDT Start Date: 05/02/18 Status: OrderedZofran ODT 4 mg oral tablet, disintegrating 1 tablet = 4 mg, By Mouth, 3 times a day, PRN Nausea & Vomiting, # 9 tablet, 0 Refills, Maintenance, 08/11/17 20:43:22 Start Date: 08/11/17 Stop Date: 08/14/17 Status: Ordered Problem List Condition Effective Dates Status Health Status Informant Chest pain(Confirmed) Active Palpitations(Confirmed) Active Social History Social History Type Response Smoking Status Current every day smoker entered on: 01/10/18 Sex
--- OUTSIDE RECORDS SUMMARY | 2022-04-21 19:43 | XMS_ITS | Continuity of Care Document ---
:1990 Author Organization [facility] Address [address] [place] [address]- Care Team Providers Name Role Phone Raul WHITTAKER, Jen Garner Primary Care Physician Encounter [facility] Date(s): 11/23/20 - 12/23/20 [facility] [address] [place] [address]- Allergies, Adverse Reactions, Alerts Substance Reaction Severity [...]
--- OUTSIDE RECORDS SUMMARY | 2022-04-21 19:44 | XMS_ITS ---
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 [employer] [facility] Feb, Oral thrush B37.0 ; Otolaryngology [place], [place] Tympanic mem brane [address] perforation H72. 90 ; Functional intes tinal disorder K59.9 a nd Chronic laryngit is J37.0 IMMUNIZATIONS No Known Immunizations SOCIAL HISTORY Qualifiers Date Former Smoker REASON FOR REFERRAL FUNCTIONAL STATUS PLAN OF CARE Activity Details Follow Up 4-6 weeks with PA and audiog uriah Reason: VITAL SIGNS Height 70 in 2019-03-21 Weight 207 lbs 2019-03-21 BMI 29.7 kg/m2 2019-03-21 MEDICATIONS Medication Instructions Dosage Frequency Start End Date Duration Stat us Date nystatin 789674 TAKE 5 ML 15 Active units/mL BY MOUTH 4 TIMES A DAY. clonazePAM 1 mg orally 3 times a 1 tab(s) Active day, PRN vitamins Active fluconazole Active PROCEDURES Procedure Date Ordered Result Body Site FIB Laryngoscopy Mar 21, 2019 RESULTS No Results REASON FOR VISIT Tympanic membrane perforation , Tympanic membrane perforation , Tympanic membrane perforation , Tympanic membrane perforation , thrush Insurance Providers [facility] Member Patient Patient Patient Patient Patient Subscriber Subscriber Subscriber Group Insurance Plan Plan Plan Plan ID Relationship Address Phone Name Date of ID Name Date of No Type Insurance Insurance Insurance Coverage to Subscriber Address Phone Name Dates [facility] [phone] [facility] self [place] [id number] [facility] [id number] [facility] [id number] [facility] [phone] [facility] self [place] [id number] [address]
--- OUTSIDE RECORDS SUMMARY | 2022-04-21 19:44 | XMS_ITS | Continuity of Care Document ---
:1990 Author Organization [facility] Address [address] [place] [address]- Care Team Providers Name Role Phone Jay Jay Tucker MD Primary Care Physician Encounter [facility] Date(s): 01/28/20 - 02/27/20 [facility] [address] [place] [address]- [facility] Attending Physician: Joan Baxter Admitting Physician: AdmJoan ken Referring Physician: AdmtrJoan Allergies, Adverse Reactions, Alerts Substance Reaction Severity [...]
--- OUTSIDE RECORDS SUMMARY | 2022-04-21 19:44 | XMS_ITS ---
:1990 Author Organization [facility] Address [address] [place] [address] Care Team Providers Name Role Phone Enoc Epperson Unavailable Unavailable PROBLEMS Type Condition ICD9-CM TAP33-UK Onset Condition SNOMED Cod e Code Code Dates Status Problem Epigastric pain R10.13 Active 7992 2009 Problem Irritable bowel K58.9 Active 1074 3008 syndrome, unspecified type Problem Gastroesophageal K21.9 Active 235 462676 reflux disease, unspecified whether esophagitis present Problem Dysautonomia G90.1 Active 0150616 6 Problem Irritable bowel K58.2 Active 1074 3008 syndrome with both constipation and diarrhea Problem C. 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 Problem Irregular bowel R19.8 Active 4447 60512 habits Problem Abdominal bloating R14.0 Active 1 26375790 Problem Anemia, unspecified D64.9 Active 032815141 type Problem Diarrhea, R19.7 Active 09749331 unspecified type Problem Nausea R11.0 Active 579157473 Problem Generalized R10.84 Active 94988376 6 abdominal discomfort ALLERGIES Substance Reaction Event Type Date Status Penicillin G Sodium Unknown Drug Allergy Aug, Active contrast dye Unknown Non Drug Allergy Aug, Active ENCOUNTERS Encounter Location Date Diagnosis [address] Mar[facility] [address] [place] [address] [facility] Outpatient [address] [place] [address] Mar, [place] [id number] [facility] [address] Feb, Rectal b leeding K62.5 and [facility] [address] [place] Irregular bowel habits R19.8 [address] [facility] [address] Feb, [facility] [address] [place] [address] [facility] [address] Dec, [facility] [address] [place] [address] [facility] [address] Dec, [facility] [address] [place] [address] [facility] [address] Oct, [facility] [address] [place] [address] [facility] [address] Sep, [facility] [address] [place] [address] [facility] [address] Aug, [facility] [address] [place] [address] [facility] [address] Aug, [facility] [address] [place] [address] [facility] [address] Aug, [facility] [address] [place] [address] [facility] [address] Aug, [facility] [address] [place] [address] [facility] [address] Aug, Anemia, unspecified type [facility] [address] [place] D64.9 ; Ir ritable bowel [address] syndrome with mike constipation and diarrhea K58.2 ; C. diffi cile diarrhea A04.72 ; Generalized abdo erich discomfort R10.8 4 and Diarrhea, unspec ified type R19.7 [facility] [address] Aug, [facility] [address] [place] [address] [facility] [address] Aug, [facility] [address] [place] [address] [facility] [address] Jun, [facility] [address] [place] [address] [facility] [address] Jun, [facility] [address] [place] [address] [facility] [address] Jun, Diarrhea , unspecified type [facility] [address] [place] R19.7 ; Re ctal bleeding K62.5 ; Generali zed abdominal discom fort R10.84 and Nausea R11.0 [facility] [address] May, [facility] [address] [place] [address] [facility] [address] May, [facility] [address] [place] [address] [facility] [address] Apr, Diarrhea , unspecified type [facility] [address] [place] R19.7 [address] [facility] [address] Feb, [facility] [address] [place] [address] [facility] [address] Feb, [facility] [address] [place] [address] [place] [address] Feb, Abdomina l bloating R14.0 ; [facility] [address] [place] Diarrhea, unspecified type R19.7 ; Irritabl e bowel syndrome, unspec ified type K58.9 ; Gastroes ophageal reflux disease, unspecified whether esophagi tis present K21.9 ; Dysauton omia G90.1 and Intestinal i nfection due to Aeromonas hyd rophila A04.[address] [place] [address] Feb, [facility] [address] [place] [address] [place] [address] November, [facility] [address] [place] [address] [facility] [address] November, [facility] [address] [place] [address] [facility] [address] November, [facility] [address] [place] [address] [place] [address] November, Epigastr ic pain R10.13 ; [facility] [address] [place] Abdominal bloating R14.0 ; [address] Irritable bowel syndrome, unspecified type K58.9 and Gastroesophageal reflux disease, unspeci fied whether esophagitis pres ent K21.9 [facility] [address] November, [facility] [address] [place] [address] IMMUNIZATIONS No Known Immunizations SOCIAL HISTORY Qualifiers Date Never Smoker REASON FOR REFERRAL FUNCTIONAL STATUS PLAN OF CARE Activity Details Future Appointment Provider Name:Enoc Epperson , 2022-05-19 02:40:00 PM, [address], [address], [place], [address], Pending Test Pathology Pending Test CULTURE, STOOL Pending Test STOOL WBC Pending Test C DIFFICILE RFLX PCR Pending Test Ova and Parasites Pending Test CHEM 7 PROFILE Pending Test LIVER PROFILE Pending Test AMYLASE Pending Test LIPASE Pending Test CRP Pending Test CBC w DIFF Pending Test SED RATE (ESR) Pending Test OVA & PARASITES (O&P) Pending Test CULTURE, STOOL Pending Test STOOL WBC Pending Test C DIFFICILE RFLX PCR Pending Test CULTURE, STOOL Pending Test STOOL WBC Pending Test C DIFFICILE RFLX PCR Pending Test OVA & PARASITES (O&P) Pending Test CULTURE, STOOL Pending Test STOOL WBC Pending Test C DIFFICILE RFLX PCR Pending Test NUC GASTRIC ANTRUM EMPTYING Pending Test US ABD Future/Pending Procedure COLONOSCOPY [id number] Future/Pending Procedure COLONOSCOPY [id number] Future/Pending Procedure UPPER GI ENDOSCOPY [id number] VITAL SIGNS Weight 237 lbs 2021-09-07 Weight 209 lbs 2021-03-08 Weight 208 lbs 2020-11-25 Height 71 in 2021-09-07 Height 71 in 2021-03-08 Height 71 in 2020-11-25 BMI 33.05 kg/m2 2021-09-07 BMI 29.15 kg/m2 2021-03-08 BMI 29.01 kg/m2 2020-11-25 Temperature 97.8 degrees Fahrenheit 2021-09-07 Temperature 97.1 degrees Fahrenheit 2021-03-08 Temperature 98.4 degrees Fahrenheit 2020-11-25 Blood pressure systolic 000 mm Hg 2021-09-07 Blood pressure diastolic 000 mm Hg 2021-09-07 MEDICATIONS Medication Instructions Dosage Frequency Start End Duration Statu s Date Date Elderberry Unknown Gammagard 30 Injection 3 as directed Unk nown GM/300ML times a month Fluticasone Active Furoate Magnesium Unknown Charlette Active Probiotic Active Mesalamine Rectal Every 1 suppository Mar, day(s) Active 1000 MG night at at bedtime 2021 bedtime L-Lysine Unknown Simpson Seal Unknown Loperamide HCl Orally Four 1 or 2 Dec, days Unkno wn 2 MG times a day as 2021 needed for diarrhea Tylenol Active Licorice-Glyci Unknown ne Vitamin D Unknown Iron (Ferrous Active Sulfate) Echinacea Unknown clonazePAM 0.5 Orally Once a 1 tablet at 24h Unknown MG day bedtime Dicyclomine Orally Q 6 1 tablet Feb, day(s) Active HCl 20 MG hours as needed 2021 for abdominal cramps and diarrhea Zinc Unknown Fish Oil Unknown PROCEDURES Procedure Date Ordered Result Body Site BP SCR NOT PRFRM REC REASON NOS Sep 07, 2021 TOBACCO NON-USER Mar 08, 2021 BP SCR PRFRM RCMDD DEFIND SCR INTVL November 25, 2020 TOBACCO NON-USER Sep 07, 2021 TOBACCO NON-USER November 25, 2020 DOC MEDS VERIFIED W/PT OR RE Mar 08, 2021 DOC MEDS VERIFIED W/PT OR RE Sep 07, 2021 DOC MEDS VERIFIED W/PT OR RE November 25, 2020 PATIENT NOT ELIG D/T ACTIVE DX HTN Mar 08, 2021 RESULTS Name Result Date Reference Range Leukocytes Stool Qualitative 2021-09-09 Leukocytes Stool Qualitative NEGATIVE NEG ATIVE Stool Culture 2021-09-09 Ova and Parasite 2021-09-09 Ova and Parasite SEE NOTE CDiff Gene PCR 2021-09-09 CDiff Gene PCR NEGATIVE Negative Giardia Ag Stool EIA 2021-09-09 Giardia Ag Stool EIA SEE NOTE Leukocytes Stool Qualitative 2021-07-04 Leukocytes Stool Qualitative NEGATIVE NEG ATIVE Stool Culture 2021-07-04 Ova and Parasite 2021-07-04 Ova and Parasite SEE NOTE CDiff Gene PCR 2021-07-04 CDiff Gene PCR POSITIVE Negative CDiff Toxin 2021-07-04 CDiff Toxin Negative Negative CDIFF Interpretation SEE NOTE Complete Blood Count Auto Diff 2021-07-01 White Blood Count 3.1 4.8-10.8 Red Blood Count 4.60 4.60-5.80 Hemoglobin 12.2 14.0-18.0 Hematocrit 36.9 42.0-52.0 Mean Corpuscular Volume 80.2 80.0-98. 0 Mean Corpuscular Hemoglobin 26.5 27.0 -33.0 Mean Corpuscular HGB Conc 33.1 31.0-3 6.0 Red Cell Distribution Width 15.3 11.0 -16.0 Platelet Count 258 160-400 Mean Platelet Volume 12.1 9.4-12.4 Neutrophils Percent Auto 53.2 45-73 Imm Gran Pct Auto 0.3 0.0-0.4 Lymphocytes Percent Auto 33.1 20-40 Monocytes Percent Auto 11.5 2-11 Eosinophils Percent Auto 1.6 0-4 Basophils Percent Auto 0.3 0-2 NRBC Pct Auto 0.0 0.0-0.2 Neutrophils Absolute Auto 1.6 2.0-8. 3 Imm Gran Abs Auto 0.01 0.00-0.03 Lymphocytes Absolute Auto 1.0 1.2-4. 9 Monocytes Absolute Auto 0.4 0.1-1.2 Eosinophils Absolute Auto 0.1 0.0-0. 4 Basophils Absolute Auto 0.0 0.0-0.2 NRBC Abs Auto 0.000 0.0-0.012 Erythrocyte Sedimentation Rate 2021-07-01 Erythrocyte Sedimentation Rate 29 0 -15 Liver Panel 2021-07-01 Bilirubin Total 0.4 0.0-1.0 Bilirubin Direct 0.2 0.0-0.5 Aspartate Amino Transferase 27 5-37 Alanine Aminotransferase 30 0-40 Total Protein 8.5 6.5-8.0 Albumin Level 3.8 3.5-5.0 Alkaline Phosphatase 61 39-117 Basic Metabolic Panel 2021-07-01 Sodium 137 135-145 Potassium 4.3 3.3-5.1 Chloride 105 96-108 Carbon Dioxide 28 22-29 Anion Gap 8 12-20 Blood Urea Nitrogen 14 9-16 Creatinine 1.06 0.5-1.4 Estimated Glomerular Filt Rate > 60 Glucose Random 96 60-115 Calcium 9.6 8.4-10.2 C Reactive Protein 2021-07-01 C Reactive Protein 0.31 < or = 0.50 Amylase 2021-07-01 Amylase 82 28-100 Lipase 2021-07-01 Lipase 40 8-78 Giardia Ag Stool EIA 2021-07-04 Giardia Ag Stool EIA SEE NOTE Leukocytes Stool Qualitative 2021-05-23 Leukocytes Stool Qualitative NEGATIVE NEG ATIVE Stool Culture 2021-05-23 Stool Culture STLPATH Stool Culture NF Stool Culture NF2 CDiff Gene PCR 2021-05-23 CDiff Gene PCR POSITIVE Negative CDiff Toxin 2021-05-23 CDiff Toxin Negative Negative CDIFF Interpretation SEE NOTE Giardia Ag Stool EIA 2021-05-23 Giardia Ag Stool EIA SEE NOTE Ova and Parasite 2021-05-23 Ova and Parasite SEE NOTE Leukocytes Stool Qualitative 2021-03-09 Leukocytes Stool Qualitative NEGATIVE NEG ATIVE Stool Culture 2021-03-09 Ova and Parasite 2021-03-09 Ova and Parasite SEE NOTE CDiff Gene PCR 2021-03-09 CDiff Gene PCR POSITIVE Negative CDiff Toxin 2021-03-09 CDiff Toxin Negative Negative CDIFF Interpretation SEE NOTE Giardia Ag Stool EIA 2021-03-09 Giardia Ag Stool EIA SEE NOTE US abdomen complete 2020-12-09 NM gastric emptying study 2020-12-06 REASON FOR VISIT Patient presents today for rectal bleeding, HAS QUESTIONS ABOUT PROCEDURE, diarrhea, rectal bleeding, irritable bowel, PATIENT OF DR EPPERSON, symptoms, Patient presents today for IBS, bleeding , wonders if you have spoken with Dr Alvarenga, would like to speak with you, fecal transplant, update on transplant, fyi update, update /spoke to pt, continuing symptoms. , records, CDIFF , check for aeromonas bacteria, H. PYLORI , test results, Re-tested H. Pylori , PATIENT PRESENTS TODAY FOR H. PYLORI, COVID Screen Insurance Providers [facility] Health Member Patient Patient Patient Patient Patient Subscriber Subscriber Subscriber Group Insurance Plan Plan Plan Plan ID Relationship Address Phone Name Date of ID Name Date of No Type Insurance Insurance Insurance Coverage to Subscriber Address Phone Name Dates MEDICAID [id number] MEDICAID self MAC [id number] [address] [place] [id number] [facility] [address]
--- OUTSIDE RECORDS SUMMARY | 2022-04-21 19:44 | XMS_ITS | Continuity of Care Document ---
:1990 Author Organization [facility] Address [address] [place] [address]- Care Team Providers Name Role Phone Garrett WHITTAKER, Jay Jay Primary Care Physician [place] [facility] [place] 02/[place]/20 [facility] [address] [place] [address]- [facility] Attending Physician[facility] Allergies, Adverse Reactions, Alerts Substance Reaction Severity [...] Status Informant Chest pain(Confirmed) Active Palpitations(Confirmed) Active Vital Signs Most recent to oldest [Reference Range]: 1 Height 180 cm (01/27/20 10:09 AM) Social History Social History Type Response Smoking Status Current every day smoker entered on: 01/10/18 Sex
--- OUTSIDE RECORDS SUMMARY | 2022-04-21 19:44 | XMS_ITS | Continuity of Care Document ---
:1990 Author Organization [facility] Address [address] [place] [address]- Care Team Providers Name Role Phone Garrett WHITTAKER, Jay Jay Primary Care Physician En[place] [facility] [place](s): 01/28/20 - 02/27/20 [facility] [address] [place] [address]- [facility] Allergies, Adverse Reactions, Alerts Substance Reaction Severity [...]
--- OUTSIDE RECORDS SUMMARY | 2022-04-21 19:44 | XMS_ITS | Continuity of Care Document ---
:1990 Author Organization [facility] Address [address] [place] [address]- Care Team Providers Name Role Phone Jen Carter MD Primary Care Physician [place] [facility] [place] - 05/22/21 [facility] [address] [place] [address]- Attending Physician: Joan Baxter Admitting Physician: AdmtrJoan Referring Physician: Admtr, ArGenny Allergies, Adverse Reactions, Alerts Substance Reaction Severity [...]
--- NOTE | 2022-04-21 19:59 | PC.NURSE ---
Pt. NPO for CT scan. Requesting ice chips. Confirmed with TELE TECH that ice chips are OK and provided ice chips to pt.
[2022-04-21 20:18] VITALS: BP 118/64; PULSE 60; RESP 16; TEMP 36.9; O2SAT 98
[2022-04-21 22:26] VITALS: BP 129/65; PULSE 59; RESP 16; TEMP 37; O2SAT 96
== END 2022-04-21 22:36 | disposition home or self-care (01) ==
PROVIDERS: Emergency Provider Emergency Medicine; PCP Internal Medicine
DX: R07.89 Other chest pain (principal); K21.9 Gastro-esophageal reflux disease without esophagitis; R10.13 Epigastric pain; Z87.891 Personal history of nicotine dependence; Z79.899 Other long term (current) drug therapy
CPT/HCPCS: 36415; 74176; 80053; 82248; 83690; 84484; 85025; 93005; 96374; 96375; 99284; 99285; J2270; J2405

== ENCOUNTER 2022-05-19 16:05 | Outpatient (REF) | payer MEDICAID, SELFPAY ==
[2022-05-19 16:50] LABS: Alanine Aminotransferase 55 U/L (0-40); Albumin Level 4.4 g/dL (3.5-5.0); Alkaline Phosphatase 79 U/L (39-117); Aspartate Amino Transferase 45 U/L (5-37); Bilirubin Direct 0.2 mg/dL (0.0-0.5); Bilirubin Total 0.3 mg/dL (0.0-1.0)
== END 2022-05-19 16:06 | disposition home or self-care (01) ==
LOC: HO.LAB 16:05
PROVIDERS: PCP Internal Medicine; Visit Provider Internal Medicine
DX: R74.8 Abnormal levels of other serum enzymes (principal)
CPT/HCPCS: 36415; 80076

== ENCOUNTER 2022-06-30 13:30 | Outpatient (REF) | payer MEDICAID, SELFPAY ==
[2022-06-30 16:14] LABS: Alanine Aminotransferase 38 U/L (0-40); Albumin Level 4.1 g/dL (3.5-5.0); Alkaline Phosphatase 56 U/L (39-117); Aspartate Amino Transferase 25 U/L (5-37); Bilirubin Direct 0.2 mg/dL (0.0-0.5); Bilirubin Total 0.4 mg/dL (0.0-1.0); Total Protein 7.7 g/dL (6.5-8.0)
== END 2022-06-30 13:31 | disposition home or self-care (01) ==
LOC: HO.LAB 13:30
PROVIDERS: PCP Internal Medicine; Visit Provider Internal Medicine
DX: R74.8 Abnormal levels of other serum enzymes (principal)
CPT/HCPCS: 36415; 80076

== ENCOUNTER 2022-07-14 10:51 | Emergency (ER) | payer MEDICAID, SELFPAY ==
--- NOTE | 2022-07-14 | ECG_ITS ---
Test Reason : chest pain Blood Pressure : / mmHG Vent. Rate : 059 BPM Atrial Rate : 059 BPM P-R Int : 178 ms QRS Dur : 084 ms QT Int : 368 ms P-R-T Axes : 044 039 035 degrees QTc Int : 364 ms Sinus bradycardia Otherwise normal ECG When compared with ECG of 21-APR-2022 18:22, No significant change was found Referred By: Generic ED Physician Electronically Signed By:Alex Hernández
[2022-07-14 11:01] VITALS: BP 112/49; PULSE 68; RESP 18; TEMP 36.6; O2SAT 100; BMI 29.9
--- NOTE | 2022-07-14 11:50 | ED.CHESTPAIN ---
HPI - Chest Pain General Chief Complaint: Chest Pain Stated Complaint: chest pain Time Seen by Provider: 07/14/22 11:44 Source: patient Mode of arrival: ambulatory Limitations: no limitations History of Present Illness HPI narrative: 32 yo male with history of ulcerative colitis, dysautonomia on IVIG who presents to the ER for evaluation of shooting chest pains for the last week. Worse with deep breaths and movement. He recently started working out. He states he also had had chest pain like this in the past when his UC has flared up. He overall thinks his UC is improved in that he is have 4-5 BMs per day, decreased from 6-8 however he has significant weight reduction in the last 3 months and decreased PO intake. He took himself off of the mesalamine due to severe nausea. He states he went to the GI office to be seen when they would not answer his calls. He has been unable to make an appointment. MD complaint: chest pain Onset (ago): week(s) (1) Timing of current episode: episodic Prior episodes: Yes Onset: during rest Pain location: left chest and right chest Pain radiation: none Severity: moderate Quality: sharp and shooting Relieving factors: nothing Exacerbating factors: inspiration Treatment prior to arrival: none Risk Factors Coronary artery disease risk factors: none Thoracic aortic dissection risk factors: none Related Data Home Medications Medication Instructions Recorded Confirmed clonazepam 1 mg tablet 1 mg PO BID 12/15/21 02/01/22 immune glob,gamma(IgG) 10 IV 12/15/21 02/01/22 [id number] 0 to 50 mcg/mL IV solution (Gammagard S-D (IgA < 1 mcg/mL)) Previous Rx's Medication Instructions Recorded loperamide 2 mg tablet 2 mg PO Q6H PRN loose stool #20 01/18/22 tabs hydrocortisone acetate 25 mg 25 mg [place] BID PRN hemorrhoids #24 ea 01/20/22 rectal suppository (Anucort-HC) ondansetron 4 mg disintegrating 4 mg PO Q8H PRN nausea and 04/21/22 tablet vomiting #7 tabs acetaminophen 650 mg 650 mg PO Q8H PRN fever or pain 07/14/22 tablet,extended release (Tylenol 8 #30 tabs Hour) metoclopramide HCl 10 mg tablet 10 mg PO Q6H PRN nausea and 07/14/22 (Reglan) vomiting #30 tabs Allergies Allergy/AdvReac Type Severity Reaction Status Date / Time metronidazole Allergy Unknown Unknown Verified 04/19/22 09:59 doxycycline Allergy Unknown Verified 04/19/22 10:00 Iodinated Contrast Media Allergy Unknown Verified 03/02/22 15:02 [Contrast Dye] Penicillins Allergy Hives Verified 03/02/22 15:02 vancomycin Allergy Unknown Verified 04/19/22 09:58 Review of Systems Review of Systems: Constitutional: No Fever, No Chills, +weight loss ENT/Mouth: No sore throat, No Rhinorrhea, No Swallowing Difficulty Cardiovascular: + Chest Pain, No SOB Respiratory: No Cough, No Sputum, No Wheezing, No dyspnea Gastrointestinal: +Nausea, No Vomiting, + Diarrhea, No abdominal Pain, No Hematochezia, No Melena Genitourinary: No Dysuria, No Urinary Frequency, No Hematuria Musculoskeletal: No joint pain, No Myalgias Skin: No Skin Lesions, No rash Neuro: No Weakness, No Numbness, No Dizziness, No Headache Heme/Lymph: No Bruising, No Lymphadenopathy PMFSH Past Medical History Medical History Bleeding hemorrhoids Dysautonomia Aristeo Monteiro infection Melo thyroiditis, fibrous variant Lyme disease Social History Social History Alcohol intake: never Patient Tobacco Use Status: Former Tobacco user Quit Date: age 24 Substance Use Type: Marijuana Advance Directives: No Physical Exam Vital Signs: Vital Signs: Last Vital Signs Temp 97.8 F 07/14/22 11:01 Pulse 68 07/14/22 11:01 Resp 18 07/14/22 11:01 BP 112/49 L 07/14/22 11:01 Pulse Ox 100 07/14/22 11:01 O2 Del Method 07/14/22 11:01 BMI result Body Mass Index 29.9 Appearance: Alert. Oriented X3. No acute distress. Eyes: Pupils equal, round and reactive to light. ENT: Pharynx normal. Neck: Normal inspection. Neck supple. CVS: Normal heart rate and rhythm. Pulses normal. Nontender chest wall. Respiratory: No respiratory distress. Breath sounds normal. Abdomen: Soft and nontender. +BS x4 Skin: Skin warm and dry. Normal skin color. Normal skin turgor. No rashes. Extremities: No lower extremity edema. Neuro: Oriented X 3. No motor deficit. No sensory deficit. Course Course Course Narrative: 32 yo male with history of UC presenting with intermittent shooting chest pains for the last 1 week along with nausea. Does not seem to be consistent with UC flare, no bloody BMs or significant abd pain. Doubt PE. Will check EKG, CXR, labs. Reevaluation(s) Reevaluation #1: Workup is unremarkable. Given tylenol and reglan for nausea. Comfortable w/ d/c home and plan to f/u with PCP and GI. Medications Administered Discontinued Medications Generic Name Dose Route Start Last Admin Trade Name Freq PRN Reason Stop Dose Admin Acetaminophen 975 mg 07/14/22 12:37 07/14/22 13:48 Acetaminophen 325 Mg Tablet PO 07/14/22 12:38 Not Given ONCE ONE Metoclopramide HCl 10 mg 07/14/22 12:55 07/14/22 13:48 Metoclopramide Hcl 10 Mg Tablet PO 07/14/22 12:56 Not Given ONCE ONE Medical Decision Making Lab Data [facility] Lab Attestation statement: I reviewed the patient's lab results. Result Diagrams: 07/14/22 11:35 07/14/22 11:35 Labs: Lab Results 07/14/22 07/14/22 07/14/22 Range/Units 11:35 11:35 11:35 WBC 4.1 L (4.8-10.8) X10*3/uL RBC 4.49 L (4.60-5.80) X10*6/uL Hgb 12.5 L (14.0-18.0) g/dl Hct 36.7 L (42.0-52.0) % MCV 81.7 (80.0-98.0) fL MCH 27.8 (27.0-33.0) pg MCHC 34.1 (31.0-36.0) g/dl RDW 16.4 H (11.0-16.0) % Plt Count 223 (160-400) X10*3/uL MPV 10.6 (9.4-12.4) fL Immature Gran % (Auto) 0.2 (0.0-0.4) % Neut % (Auto) 68.9 (45-73) % Lymph % (Auto) 23.7 (20-40) % Mccreary % (Auto) 6.0 (2-11) % Eos % (Auto) 1.0 (0-4) % Baso % (Auto) 0.2 (0-2) % Lymph # (Auto) 1.0 L (1.2-4.9) X10*3/uL Mccreary # (Auto) 0.3 (0.1-1.2) X10*3/uL Eos # (Auto) 0.0 (0.0-0.4) X10*3/uL Baso # (Auto) 0.0 (0.0-0.2) X10*3/uL Abs Immat Gran (auto) 0.01 (0.00-0.03) X10*3/uL Absolute Neuts (auto) 2.9 (2.0-8.3) x10*3/uL Absolute Nucleated RBC 0.000 (0.0-0.012) X10*3/uL Nucleated RBC % (auto) 0.0 (0.0-0.2) /100WBC Sodium 139 (135-145) mmol/L Potassium 4.4 (3.3-5.1) mmol/L Chloride 107 (96-108) mmol/L Carbon Dioxide 26 (22-29) mmol/L Anion Gap 10 L (12-20) BUN 9 (9-16) mg/dL Creatinine 0.97 (0.5-1.4) mg/dL Estim Creat Clear Calc 131.3 Estimated GFR > 60 Random Glucose 79 (60-115) mg/dL Calcium 9.5 (8.4-10.2) mg/dL Total Bilirubin 0.4 (0.0-1.0) mg/dL AST 19 (5-37) U/L ALT 24 (0-40) U/L Alkaline Phosphatase 58 (39-117) U/L Troponin I High Sens < 3.5 (<3.5-35.0) ng/L Total Protein 7.1 (6.5-8.0) g/dL Albumin 4.0 (3.5-5.0) g/dL Influenza Type A (PCR) (Negative) Influenza Type B (PCR) (Negative) RSV RNA Qual (PCR) (Negative) SARS-CoV-2 RNA (RT-PCR) (Negative) 07/14/22 Range/Units 11:35 WBC (4.8-10.8) X10*3/uL RBC (4.60-5.80) X10*6/uL Hgb (14.0-18.0) g/dl Hct (42.0-52.0) % MCV (80.0-98.0) fL MCH (27.0-33.0) pg MCHC (31.0-36.0) g/dl RDW (11.0-16.0) % Plt Count (160-400) X10*3/uL MPV (9.4-12.4) fL Immature Gran % (Auto) (0.0-0.4) % Neut % (Auto) (45-73) % Lymph % (Auto) (20-40) % Mccreary % (Auto) (2-11) % Eos % (Auto) (0-4) % Baso % (Auto) (0-2) % Lymph # (Auto) (1.2-4.9) X10*3/uL Mccreary # (Auto) (0.1-1.2) X10*3/uL Eos # (Auto) (0.0-0.4) X10*3/uL Baso # (Auto) (0.0-0.2) X10*3/uL Abs Immat Gran (auto) (0.00-0.03) X10*3/uL Absolute Neuts (auto) (2.0-8.3) x10*3/uL Absolute Nucleated RBC (0.0-0.012) X10*3/uL Nucleated RBC % (auto) (0.0-0.2) /100WBC Sodium (135-145) mmol/L Potassium (3.3-5.1) mmol/L Chloride (96-108) mmol/L Carbon Dioxide (22-29) mmol/L Anion Gap (12-20) BUN (9-16) mg/dL Creatinine (0.5-1.4) mg/dL Estim Creat Clear Calc Estimated GFR Random Glucose (60-115) mg/dL Calcium (8.4-10.2) mg/dL Total Bilirubin (0.0-1.0) mg/dL AST (5-37) U/L ALT (0-40) U/L Alkaline Phosphatase (39-117) U/L Troponin I High Sens (<3.5-35.0) ng/L Total Protein (6.5-8.0) g/dL Albumin (3.5-5.0) g/dL Influenza Type A (PCR) NEGATIVE (Negative) Influenza Type B (PCR) NEGATIVE (Negative) RSV RNA Qual (PCR) NEGATIVE (Negative) SARS-CoV-2 RNA (RT-PCR) NEGATIVE (Negative) Independent Interpretation I performed an independent interpretation of an: EKG Interpretation: sinus bradycardia, HR 59, normal AZ interval, no ST segment elevations or depressions. no change from prior Discharge Plan Discharge Clinical Impression: Costalchondritis Patient Disposition: Home, Self-Care Instructions: Costochondritis (ED) Additional Instructions: Today your lab workup was unremarkable today. Your chest x-ray was normal. Your EKG was normal. Your pain does not seem to be cardiac or pulmonary related. It may be from inflammation and irritation of the chest wall known as costochondritis. Treatment is rest, anti-inflammatory medication or Tylenol. Recommend following up with your primary care doctor in your GI doctor as well. If you develop new or worsening symptoms call 911 or come back to the ER for further evaluation. Prescriptions: New metoclopramide HCl [Reglan] 10 mg tablet 10 mg PO Q6H PRN (Reason: nausea and vomiting) Qty: 30 0RF acetaminophen [Tylenol 8 Hour] 650 mg tablet extended release 650 mg PO Q8H PRN (Reason: fever or pain) Qty: 30 0RF No Action loperamide 2 mg tablet 2 mg PO Q6H PRN (Reason: loose stool) Qty: 20 0RF hydrocortisone acetate [Anucort-HC] 25 mg suppository 25 mg AZ BID PRN (Reason: hemorrhoids) Qty: 24 2RF ondansetron 4 mg tablet,disintegrating 4 mg PO Q8H PRN (Reason: nausea and vomiting) Qty: 7 0RF clonazepam 1 mg tablet 1 mg PO BID Gammagard S-D (IgA < 1 mcg/mL) 10 gram recon soln IV Referrals: [facility] Gastroenterology Services [Provider Group] Interventions: ED Discharge Assessment Last Done: 07/14/22 13:49 Discharge Date/Time: 07/14/22 13:50
[2022-07-14 11:52] LABS: MANUAL DIFF FLAG NO
[2022-07-14 11:55] LABS: Basophils Percent Auto 0.2 % (0-2); Hematocrit 36.7 % (42.0-52.0); Hemoglobin 12.5 g/dl (14.0-18.0); Imm Gran Abs Auto 0.01 X10*3/uL (0.00-0.03); Imm Gran Pct Auto 0.2 % (0.0-0.4); Lymphocytes Percent Auto 23.7 % (20-40); Mean Corpuscular HGB Conc 34.1 g/dl (31.0-36.0); Mean Corpuscular Hemoglobin 27.8 pg (27.0-33.0); Mean Corpuscular Volume 81.7 fL (80.0-98.0); Mean Platelet Volume 10.6 fL (9.4-12.4); Monocytes Absolute Auto 0.3 X10*3/uL (0.1-1.2); Neutrophils Absolute Auto 2.9 x10*3/uL (2.0-8.3); Neutrophils Percent Auto 68.9 % (45-73); Platelet Count 223 X10*3/uL (160-400); Red Blood Count 4.49 X10*6/uL (4.60-5.80); Red Cell Distribution Width 16.4 % (11.0-16.0); White Blood Count 4.1 X10*3/uL (4.8-10.8)
[2022-07-14 12:21] LABS: Alanine Aminotransferase 24 U/L (0-40); Alkaline Phosphatase 58 U/L (39-117); Anion Gap 10 (12-20); Aspartate Amino Transferase 19 U/L (5-37); Bilirubin Total 0.4 mg/dL (0.0-1.0); Blood Urea Nitrogen 9 mg/dL (9-16); Calcium 9.5 mg/dL (8.4-10.2); Carbon Dioxide 26 mmol/L (22-29); Chloride 107 mmol/L (96-108); Creatinine Clr Calc Pharmacy 131.3; Estimated Glomerular Filt Rate > 60; Glucose Random 79 mg/dL (60-115); Potassium 4.4 mmol/L (3.3-5.1); Sodium 139 mmol/L (135-145); Total Protein 7.1 g/dL (6.5-8.0)
[2022-07-14 12:29] LABS: Troponin-I High Sensitivity < 3.5 ng/L (<3.5-35.0)
[2022-07-14 12:33] LABS: Influenza A PCR NEGATIVE (Negative); Influenza B PCR NEGATIVE (Negative); Resp Syncy Virus RNA Qual PCR NEGATIVE (Negative); SARS COV2 PCR INHOUSE NEGATIVE (Negative)
== END 2022-07-14 13:50 | disposition home or self-care (01) ==
PROVIDERS: Emergency Provider Student in an Organized Health Care Education/Training Program
DX: R07.89 Other chest pain (principal); M94.0 Chondrocostal junction syndrome [Tietze]; Z20.822 Contact with and (suspected) exposure to COVID-19; Z79.899 Other long term (current) drug therapy
CPT/HCPCS: 0241U; 71046; 80053; 84484; 85025; 93005; 99283

== ENCOUNTER 2022-07-26 22:48 | Emergency (ER) | payer MEDICAID, SELFPAY ==
--- NOTE | 2022-07-26 | ECG_ITS ---
Test Reason : CP Blood Pressure : / mmHG Vent. Rate : 069 BPM Atrial Rate : 069 BPM P-R Int : 166 ms QRS Dur : 084 ms QT Int : 350 ms P-R-T Axes : 021 032 021 degrees QTc Int : 375 ms Normal sinus rhythm Normal ECG When compared with ECG of 14-JUL-2022 11:26, No significant change was found Referred By: Generic ED Physician Electronically Signed By:MICHAEL RODRIGUEZ
[2022-07-26 22:54] VITALS: BP 105/58; BP 133/85; PULSE 65; PULSE 70; RESP 16; TEMP 36.5; O2SAT 100; BMI 31.1
--- NOTE | 2022-07-26 23:10 | ED_ITS ---
HPI - Chest Pain General Chief Complaint: Chest Pain Stated Complaint: CP AND ABD OAIN Time Seen by Provider: 07/26/22 23:08 History of Present Illness HPI narrative: Patient with multiple medical complaints been diagnosed with ulcerative colitis with chronic abdominal pain history of dysautonomia on IgG infusion 3 times a month anxiety and chronic diarrhea patient takes Klonopin 0.5 mg at bedtime with chronic chest pain for over 1 year been here multiple times for same comes here for pain in the mid chest started earlier today with palpitations on arrival patient's heart rate was 67 his pain is similar to that in the past get worse on movement and palpation of left side of the chest patient does have a poor sleep and increased stress in life Related Data Home Medications Medication Instructions Recorded Confirmed clonazepam 1 mg tablet 1 mg PO BID 12/15/21 02/01/22 immune glob,gamma(IgG) 10 IV 12/15/21 02/01/22 tuxr-jms-qkrp-IgA 0 to 50 mcg/mL IV solution (Gammagard S-D (IgA < 1 mcg/mL)) Previous Rx's Medication Instructions Recorded loperamide 2 mg tablet 2 mg PO Q6H PRN loose stool #20 01/18/22 tabs hydrocortisone acetate 25 mg 25 mg [place] BID PRN hemorrhoids #24 ea 01/20/22 rectal suppository (Anucort-HC) ondansetron 4 mg disintegrating 4 mg PO Q8H PRN nausea and 04/21/22 tablet vomiting #7 tabs acetaminophen 650 mg 650 mg PO Q8H PRN fever or pain 07/14/22 tablet,extended release (Tylenol 8 #30 tabs Hour) metoclopramide HCl 10 mg tablet 10 mg PO Q6H PRN nausea and 07/14/22 (Reglan) vomiting #30 tabs tramadol 50 mg tablet 50 mg PO Q6H PRN pain #20 tabs 07/26/22 Allergies Allergy/AdvReac Type Severity Reaction Status Date / Time metronidazole Allergy Unknown Unknown Verified 04/19/22 09:59 doxycycline Allergy Unknown Verified 04/19/22 10:00 Iodinated Contrast Media Allergy Unknown Verified 03/02/22 15:02 [Contrast Dye] Penicillins Allergy Hives Verified 03/02/22 15:02 vancomycin Allergy Unknown Verified 04/19/22 09:58 [facility] Past Medical History Medical History Bleeding hemorrhoids Dysautonomia Aristeo Monteiro infection Melo thyroiditis, fibrous variant Lyme disease Social History Social History Alcohol intake: never Patient Tobacco Use Status: Former Tobacco user Quit Date: age 24 Substance Use Type: Marijuana Advance Directives: No Physical Exam Vital Signs: Vital Signs: Last Vital Signs Temp 98 F 07/27/22 00:07 Pulse 61 07/27/22 00:07 Resp 18 07/27/22 00:07 BP 109/61 07/27/22 00:07 Pulse Ox 97 07/27/22 00:07 O2 Del Method 07/27/22 00:07 BMI result Body Mass Index 31.1 Appearance: Alert. Oriented X3. No acute distress. Eyes: PERRLA, No Nystagmus ENT: Pharynx normal. Oral Mucosa moist Neck: Normal inspection. Neck supple. CVS: Normal heart rate and rhythm. Pulses normal. Respiratory: No respiratory distress. Equal air entry bilateral, no wheezing/rales/rhonchi chest wall tenderness+ Abdomen: Soft and nontender. Bowel sounds are present, no mass palpable, no CVA tenderness Skin: Skin warm and dry. Normal skin color. Normal skin turgor. Extremities: No lower extremity edema. No calf tenderness Neuro: Oriented X 3. No motor deficit. No sensory deficit.No cerebellar signs , cranial nerves II-XII intact Medications Administered Discontinued Medications Generic Name Dose Route Start Last Admin Trade Name Freq PRN Reason Stop Dose Admin Tramadol HCl 50 mg 07/26/22 23:25 07/26/22 23:43 Tramadol Hcl 50 Mg Tablet PO 07/26/22 23:26 50 mg ONCE ONE Administration Medical Decision Making Medical Decision Making [facility] Narrative: Patient with chronic chest pain normal EKG multiple ED visits multiple complaints discharge patient home advised to follow with PCP Independent Interpretation I performed an independent interpretation of an: EKG Interpretation: Normal sinus rhythm heart rate 69 beats per minute normal intervals normal axis no acute ST changes Discharge Plan Discharge Clinical Impression: Costalchondritis Patient Disposition: Home, Self-Care Instructions: Costochondritis (ED) Additional Instructions: Your chest pain is not from the cardiac origin Tramadol for chronic pain Follow-up with PCP Prescriptions: New tramadol 50 mg tablet 50 mg PO Q6H PRN (Reason: pain) Qty: 20 0RF No Action loperamide 2 mg tablet 2 mg PO Q6H PRN (Reason: loose stool) Qty: 20 0RF hydrocortisone acetate [Anucort-HC] 25 mg suppository 25 mg [place] BID PRN (Reason: hemorrhoids) Qty: 24 2RF ondansetron 4 mg tablet,disintegrating 4 mg PO Q8H PRN (Reason: nausea and vomiting) Qty: 7 0RF metoclopramide HCl [Reglan] 10 mg tablet 10 mg PO Q6H PRN (Reason: nausea and vomiting) Qty: 30 0RF acetaminophen [Tylenol 8 Hour] 650 mg tablet extended release 650 mg PO Q8H PRN (Reason: fever or pain) Qty: 30 0RF clonazepam 1 mg tablet 1 mg PO BID Gammagard S-D (IgA < 1 mcg/mL) 10 gram recon soln IV Interventions: ED Discharge Assessment Last Done: 07/27/22 00:13 Discharge Date/Time: 07/27/22 00:14
--- OUTSIDE RECORDS SUMMARY | 2022-07-26 23:21 | XMS_ITS ---
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 90 ; Functional intes tinal [...] End Date Duration Stat us Date nystatin 879500 TAKE 5 ML 15 Active units/mL BY [...] Tympanic membrane perforation , thrush Insurance Providers [facility] Member Patient Patient Patient Patient Patient Subscriber Subscriber Subscriber Group Insurance Plan Plan Plan Plan ID Relationship Address Phone Name Date of ID Name Date of No Type Insurance Insurance Insurance Coverage to Subscriber Address Phone Name Dates [facility] [phone] [facility] self [place] [id number] [facility] [id number] [facility] [id number] [facility] [phone] [facility] self [place] [phone] [id number] [address]
[2022-07-26] MEDS: traMADoL HCL 50 MG TABLET PO (23:43)
--- NOTE | 2022-07-26 23:48 | PC.NURSE ---
Patient is alert and oriented x4. Pain medication was given per doctors order. Vitals are stable, no signs of resp distress. Patient is resting comfortable with the call harden in reach.
[2022-07-27 00:07] VITALS: BP 109/61; PULSE 61; RESP 18; TEMP 36.6; O2SAT 97
--- NOTE | 2022-07-27 00:12 | PC.NURSE ---
Patient is alert and oriented. Stated that pain medication helped with his pain. Denies to be in discomfort. No signs of resp distress. Skin moist and warm. Pony is stable. Patient is ready to be discharged home
== END 2022-07-27 00:14 | disposition home or self-care (01) ==
PROVIDERS: Emergency Provider Internal Medicine; PCP Internal Medicine
DX: M94.0 Chondrocostal junction syndrome [Tietze] (principal)
CPT/HCPCS: 93005; 99283; 99284